=== PATIENT | female | born 1970 | race Caucasian/White ===

== ENCOUNTER 2024-04-07 05:51 | Day surgery (SDC) | payer OTHER ==
[2024-04-05 09:31] VITALS: BP 116/74
[~2024-04-07] VITALS: Ht 200.7 cm; Wt 138.0 kg
[~2024-04-07 05:51] MED LIST: AMLODIPINE BESYL5 MG PO; DILTIAZEM 24HR120 MG PO; ELIQUIS5 MG PO; FLECAINIDE ACET50 MG PO; HYDROCHLOROTHIA25 MG PO; LOSARTAN POTAS100 MG PO; MEDROXYPROGESTE10 MG PO; MIDAZOLAM HCL 5 MG/5 ML VIAL IV PRN; SIMVASTATIN40 MG PO; fentaNYL citrate 100 MCG/2 ML VIAL IV PRN
[2024-04-07 05:57] VITALS: BP 158/68
[2024-04-07] MEDS ORDERED: OMEPRAZOLE20 MG PO (06:00)
[2024-04-07] MEDS ORDERED: CO Q-10200 MG PO (06:03)
[2024-04-07] MEDS ORDERED: VITAMIN D250 MCG PO (06:04)
[2024-04-07] MEDS ORDERED: FIBER THERAPY0.52 GM PO (06:05)
[2024-04-07] MEDS ORDERED: LIDOCAINE HCL 1% 5 ML SDV INJ ONE (07:00)
[2024-04-07] MEDS ORDERED: IBLOOD GLUCOSE TEST STRIP 1 EA TEST VI PRN (07:00)
[2024-04-07] MEDS ORDERED: LACTATED RINGER'S 1,000 ML IV SCH (07:00)
[2024-04-07] MEDS ORDERED: LIDOCAINE HCL 2% 5 ML SDV ONE (07:19)
[2024-04-07] MEDS ORDERED: propofoL 200 MG/20 ML VIAL ONE (07:19)
--- NOTE | 2024-04-07 07:29 | NUR ---
VISITED DURING SPIRITUAL CARE ROUNDS. PT SUPPORTED BY IN ROOM. BOTH IN OVERALL GOOD SPIRITS, NO OVERT SIGNS OF ANXIETY. WELDING MACHINE OPERATOR ULTRASONIC PROVIDED SUPPORTIVE PRESENCE, HOSPITALITY, PRAYER. PT AND EXPRESSED GRATITUDE.
--- NOTE | 2024-04-07 07:59 | NUR ---
04/07/24 0759 Elvira Judge 0755-PATIENT ARRIVED TO PACU ON 6L MASK RR EVEN REACTIVE TO VERBAL STIMULI OPENS EYES. ORIENTED TO PACU. SR. IVF INFUSING. ABDOMEN SOFT. LAYING LEFT LATERAL 0757-PATIENT COUGHING AWAKE HOB ELEVATED 6L MASK RR EVEN.
[2024-04-07 08:17] VITALS: BP 136/80
--- NOTE | 2024-04-07 09:41 | OR ---
[facility] [address], [place] [address] Signed DATE OF OPERATION: 04/07/2024 SURGEON: Hubert Long MD PREOPERATIVE DIAGNOSES: 1. Personal history of colonic polyps in 2019 at age 48. 2. Father and both sisters with colonic polyps. POSTOPERATIVE DIAGNOSES: 1. 4 mm polyp at 95 cm. 2. Minimal internal hemorrhoids with a single internal anal skin tag. PROCEDURE: Colonoscopy with hot biopsy. ESTIMATED BLOOD LOSS: None. INDICATIONS: Hadley is a 53-year-old obese female, asked to see me for a followup colonoscopy. She had her initial colonoscopy in 2019 at the age of 48 while living in [place], [place]. She had two polyps removed. She is pretty certain she is on the five year plan. However, her father and sisters have all had colonic polyps removed as well. She has no lower GI complaints currently. In the office, I gave her a pamphlet on colonoscopy. We had reviewed the nature of the test. There is risk including, but not limited to gas bloating, crampy abdominal pain, bleeding, perforation requiring surgery, and missed diagnosis. We also reviewed the written instructions for a bowel prep line by line. Her just used our bowel prep a few weeks ago. In addition, she has significant medical issues including her obesity and her cardiac history. Consequently, she had monitored anesthesia care with propofol infusion today. She did require preoperative blood work and an EKG which showed normal sinus rhythm. She understands an adult person has to take her home afterwards. She had expressed understanding and wished to proceed. DESCRIPTION OF PROCEDURE: Hadley was taken into our endoscopy suite and placed in the left lateral decubitus position. She was given monitored anesthesia care with propofol infusion per our nurse electronic field service engineer. A digital rectal exam was performed. This showed small external hemorrhoids. She had good sphincter tone. There were no masses. The adult colonoscope was introduced and advanced all around into the cecum under direct visualization of Electronically Signed By: HUBERT LONG MD 04/07/24 0941 PATIENT NAME: HADLEY STEIN OPERATIVE REPORT DATE OF : 66 REPORT #: [id number] PHYSICIAN: HUBERT LONG MD PCP: KEYONA IBRAHIM MD REPORT IS CONFIDENTIAL AND NOT TO BE RELEASED WITHOUT AUTHORIZATION [facility] [address], [place] [address] Signed camera without difficulty. Her prep was quite good. We could easily see the appendiceal orifice and the ileocecal valve. The scope was then slowly withdrawn. We took a single 4 mm polyp out at 95 cm with the help of hot biopsy forceps. There was no diverticulosis. The scope had been retroflexed in the rectum. She has very minimal internal hemorrhoid tissue and just a small 3 mm internal anal skin tag. After this, the gas was suctioned out and the colonoscope removed. Hadley tolerated the procedure quite well. RECOMMENDATIONS: Hadley will follow up in my office in 7 to 14 days to review her results. It looks like she will be on the five year plan. She will likely need monitored anesthesia care for all future colonoscopies. Hubert Long MD ALB/MODL /[id number] cc: Dr. Keyona Long MD Copies: HUBERT LONG MD ~ Electronically Signed By: HUBERT LONG MD 04/07/24 0941 PATIENT NAME: HADLEY STEIN OPERATIVE REPORT DATE OF : 66 REPORT #: [id number] PHYSICIAN: HUBERT LONG MD PCP: KEYONA IBRAHIM MD REPORT IS CONFIDENTIAL AND NOT TO BE RELEASED WITHOUT AUTHORIZATION
--- NOTE | 2024-04-11 17:57 | PATH ---
[facility] [address] [facility] [place] [address] Signed SPECIMEN(S): A COLON POLYP AT 95 CM SPECIMEN SOURCE: A. COLON POLYP AT 95 CM CLINICAL HISTORY: Postop: Minimal internal hemorrhoids, polyp x 1 FINAL PATHOLOGIC DIAGNOSIS: Colon polyp at 95 cm: - Polypoid colonic mucosa with slight adenomatous change (one fragment). JVR:clv MICROSCOPIC EXAMINATION: Histologic sections of all submitted blocks are examined by light microscopy. These findings, together with the gross examination, support the pathologic diagnosis. GROSS DESCRIPTION: The specimen, labeled and designated "Og Arroyo, colon polyp at 95 cm," is received in formalin and consists of one hernandez soft tissue fragment, 0.3 cm. Entirely submitted in (A1). AB (under the direct supervision of a pathologist) The Gross Description was prepared using a voice recognition system. The report was reviewed for accuracy; however, sound-alike word errors, addition and/or deletions may occur. If there is any question about this report, please contact Client Services. PERFORMING LABORATORY: Technical component was performed by [facility], [address] [place] [id number] (CLIA# [id number]). Professional interpretation was performed by [facility], [address] [place] [id number] (CLIA#: [id number]). Diagnostician: Bryson Stokes MD Pathologist Electronically Signed 04/11/2024 Copies: PATIENT NAME: NELLY ARROYO PATHOLOGY DATE OF : 66 REPORT #: [id number] PHYSICIAN: [facility] PCP: MARNI IBRAHIM MD REPORT IS CONFIDENTIAL AND NOT TO BE RELEASED WITHOUT AUTHORIZATION [address] [address] Signed ~ PATIENT NAME: NELLY ARROYO PATHOLOGY DATE OF : 66 REPORT #: [id number] PHYSICIAN: [facility] PCP: MARNI IBRAHIM MD REPORT IS CONFIDENTIAL AND NOT TO BE RELEASED WITHOUT AUTHORIZATION
== END 2024-04-07 08:35 | disposition home or self-care (01) ==
LOC: DS 05:51
PROVIDERS: ATTEND Colon & Rectal Surgery
PROC: 0DBE8ZX Excision of Large Intestine, Via Natural or Artificial Opening Endoscopic, Diagnostic (ICD-10-PCS; principal; 2024-04-07 07:30)
DX: D12.6 Benign neoplasm of colon, unspecified (principal); K64.8 Other hemorrhoids; I10 Essential (primary) hypertension; E78.5 Hyperlipidemia, unspecified; I48.0 Paroxysmal atrial fibrillation; E66.9 Obesity, unspecified; Z68.42 Body mass index [BMI] 45.0-49.9, adult; Z79.899 Other long term (current) drug therapy; Z83.719 Family history of colon polyps, unspecified
CPT/HCPCS: 00811; J2003; J2704; J7121